=== PATIENT | female | born 1980 | race Two or more races ===

== ENCOUNTER 2016-06-03 00:21 | Observation (INO) | payer OTHER ==
[~2016-06-03] VITALS: Ht 154.9 cm; Wt 62.6 kg
[2016-06-03 01:00] VITALS: BP 101/50
[2016-06-03 01:33] LABS: Basophils # (auto) 0 uL; Basophils % (auto) 0.4 % (0.0-2.0); DEFINITIVE VIEW TRANSMISSION; Eosinophils # (auto) 0.2 uL; Hematocrit 29.9 % (36.0-46.0); Hemoglobin 9.4 g/dL (12.2-16.2); Lymphocytes % (auto) 17.5 % (10.0-50.0); Mean Corpuscular Hemoglobin 21.9 pg (28.0-32.0); Mean Corpuscular Hgb Conc. 31.5 g/dL (32.0-36.0); Mean Corpuscular Volume 69.4 fL (80.0-100.0); Mean Platelet Volume 8.4 fL (7.4-10.4); Monocytes # (auto) 0.7 uL; Neutrophils # (auto) 8.6 uL; Neutrophils % (auto) 74.1 % (37.0-80.0); Platelet Count (auto) 437 10^3/uL (140-450); White Blood Cell 11.5 10^3/uL (4.4-10.8)
[2016-06-03 01:47] LABS: Albumin 3.6 g/dL (3.4-5.0); BUN/Creatinine Ratio 11.6; Bilirubin, Total 0.3 mg/dL (0.2-1.0); Calcium 8.8 mg/dL (8.5-10.1); Magnesium 1.8 mg/dL (1.6-2.6); Potassium 3.7 mmol/L (3.5-5.1); Total Protein 7.8 g/dL (6.4-8.2)
== END 2016-06-03 07:20 | disposition left against medical advice (07) | DRG 392 ==
LOC: ER 00:23 → EDBD 00:23 → ER 07:00 → OVERFLOW 07:17 → ER 07:32
PROVIDERS: ADMIT Emergency Medicine; ATTEND Emergency Medicine
DX: R11.2 Nausea with vomiting, unspecified (principal)
CPT/HCPCS: 36415; 80053; 83735; 85025; 99285; G0378